=== PATIENT | female | born 1950 | race Caucasian/White ===

== ENCOUNTER → 2016-10-26 | Outpatient (CLI) | payer OTHER ==
--- NOTE | 2016-10-26 12:37 | REP ---
Chest two views HISTORY: Cough Comparison: 01/21/2012 The lungs are clear. The heart is normal in size. The pulmonary vasculature is normal in appearance. Degenerative change is present in the thoracic spine. IMPRESSION: No acute disease. Signed by Chu Mayer MD 10/26/2016 12:28 P
== END ==
LOC: M SMT 11:39
PROVIDERS: ATTEND Internal Medicine Pulmonary Disease
DX: R05 Cough (principal)

== ENCOUNTER → 2017-08-05 | Outpatient (REF) | payer OTHER ==
[2017-08-05 13:23] LABS: ANION GAP 8 MEQ/L (8-16); BLOOD UREA NITROGEN 19 MG/DL (7-18); CARBON DIOXIDE LEVEL 26 MEQ/L (21-32); CHLORIDE LEVEL 107 MEQ/L (98-107); CREATININE FOR GFR 0.81 MG/DL (0.55-1.02); GLOMERULAR FILTRATION RATE > 60.0 (>45); GLUCOSE, FASTING 92 MG/DL (80-110); POTASSIUM SERUM 4.8 MEQ/L (3.5-5.1); SODIUM LEVEL 141 MEQ/L (136-145)
== END ==
LOC: M LAB REF 12:52
PROVIDERS: ATTEND Nurse Practitioner Adult Health
DX: E11.9 Type 2 diabetes mellitus without complications (principal); I10 Essential (primary) hypertension

== ENCOUNTER → 2020-11-25 | Outpatient (CLI) | payer MEDICARE, OTHER ==
--- NOTE | 2020-11-26 03:00 | REP ---
INDICATION: PAIN COMPARISON: None. TECHNIQUE: Internal rotation, external rotation, and Y view. FINDINGS: Moderate to somewhat significant cortical irregularity and spurring at the acromioclavicular joint is appreciated along with evidence for old healed mid clavicle shaft fracture. The ossified glenoid rim has a subtle irregular frayed appearance. The proximal humerus is essentially age-appropriate. The subacromial space is normal. No evidence for acute fracture or dislocation. IMPRESSION: Mild/moderate osteoarthritic degenerative changes primarily involving the acromioclavicular joint and glenoid rim. <Electronically signed by Chad Gabriel > 11/26/20 025
== END ==
LOC: M WUC 14:26
PROVIDERS: ATTEND Nurse Practitioner Adult Health
DX: M19.011 Primary osteoarthritis, right shoulder (principal)

== ENCOUNTER 2021-05-11 20:18 | Emergency (ER) | payer MEDICARE, OTHER ==
[~2021-05-11] VITALS: Ht 157.5 cm; Wt 78.0 kg
[2021-05-11] MEDS ORDERED: HYDROMORPHONE HCL 0.5 MG/ 0.5 ML SYRINGE (J1170 PER 1) IV ONE (22:20)
--- NOTE | 2021-05-11 22:47 | REPVR ---
PROCEDURE INFORMATION: Exam: XR Left Humerus Exam date and time: 05/11/2021 9:58 PM Age: 70 years old Clinical indication: Injury or trauma; Fall; Dislocation; Humerus, proximal end; Left TECHNIQUE: Imaging protocol: XR Left humerus. Views: 2 or more views. COMPARISON: 1. CR SHOULDER COMPLETE 2020-11-25 14:40 2. US EXTREMITY NON VASCUL LIMITED 2016-03-15 16:51 3. CR CHEST 2 VIEWS 2016-10-26 11:44 FINDINGS: Bones/joints: Anterior inferior dislocated humerus. Soft tissues: Normal. IMPRESSION: Anterior inferior dislocated humerus. Electronically signed by: Jerome Kline On 05/11/2021 22:47:31 PM
--- NOTE | 2021-05-11 22:56 | REPVR ---
PROCEDURE INFORMATION: Exam: XR Left Shoulder Exam date and time: 05/11/2021 9:58 PM Age: 70 years old Clinical indication: Injury or trauma; Fall; Dislocation; Humerus, proximal end; Left TECHNIQUE: Imaging protocol: XR Left shoulder. Views: 2 or more views. COMPARISON: 1. CR SHOULDER COMPLETE 2020-11-25 14:40 2. US EXTREMITY NON VASCUL LIMITED 2016-03-15 16:51 3. CR CHEST 2 VIEWS 2016-10-26 11:44 FINDINGS: Bones/joints: Inferior anterior dislocated left humerus. Soft tissues: Soft tissue swelling. IMPRESSION: Inferior anterior dislocated left humerus. Electronically signed by: Jerome Kline On 05/11/2021 22:56:31 PM
[2021-05-11] MEDS ORDERED: propofoL 200 MG/20 ML VIAL IV.PROC PRN (23:00)
[2021-05-11] MEDS ORDERED: NS 1,000 ML IV SCH (23:00)
[2021-05-11] MEDS ORDERED: KETAMINE HCL 200 MG/20 ML VIAL IV ONE (23:00)
[2021-05-11] MEDS ORDERED: ATOR40TA75 PO (23:50)
[2021-05-11] MEDS ORDERED: IRBE150T7 PO (23:50)
[2021-05-11] MEDS ORDERED: AMLO1TAB24 PO (23:50)
[2021-05-12] VITALS: O2SAT 98
[2021-05-12] MEDS ORDERED: propofoL 200 MG/20 ML VIAL IV ONE (00:25)
--- NOTE | 2021-05-12 00:50 | REPVR ---
PROCEDURE INFORMATION: Exam: XR Left Shoulder Exam date and time: 05/11/2021 11:57 PM Age: 70 years old Clinical indication: Pain; Left; Patient HX: Reduction of dislocated shoulder TECHNIQUE: Imaging protocol: XR Left shoulder. Views: 1 view. COMPARISON: CR Shoulder, complete LEFT 05/11/2021 9:37 PM FINDINGS: Bones/joints: There has been a successful reduction of the previously noted left anterior shoulder dislocation since the left shoulder x-rays on 05/11/2021 9:37 PM. There is an acute mildly displaced fracture of the anterior inferior portion of the left glenoid (Bankart fracture). There is a possible Hill-Sachs lesion. Left lung: There is left basilar atelectasis. Soft tissues: Unremarkable. IMPRESSION: 1. Successful reduction of the previously noted left anterior shoulder dislocation since the left shoulder x-rays on 05/11/2021 9:37 PM. 2. Possible left Hill-Sachs lesion and a left Bankart fracture. Electronically signed by: Sebastien Timmons On 05/12/2021 00:49:36 AM
[2021-05-12] MEDS ORDERED: KETOROLAC 30 MG/ML 1ML VIAL IV ONE (01:15)
[2021-05-12] MEDS ORDERED: NORCO 5/325MG TABLET (BULK FOR ED) PO ONE (02:00)
[2021-05-12 02:15] VITALS: BP 142/68
== END 2021-05-12 02:37 | disposition home or self-care (01) ==
LOC: M ED 20:18
DX: S43.005A Unspecified dislocation of left shoulder joint, initial encounter (principal); W01.0XXA Fall on same level from slipping, tripping and stumbling without subsequent striking against object, initial encounter; Y92.018 Other place in single-family (private) house as the place of occurrence of the external cause; Z88.1 Allergy status to other antibiotic agents; Z91.040 Latex allergy status
CPT/HCPCS: 23650; 73020; 73030; 73060; 80047; 93041; 96361; 96374; 99152; 99285; J1170; J1885

== ENCOUNTER → 2021-08-03 | Outpatient (REF) | payer MEDICARE, OTHER ==
[~2021-08-03] MED LIST: AMLO1TAB24 PO; ATOR40TA75 PO; IRBE150T7 PO
== END ==
LOC: M LAB REF 16:25
PROVIDERS: ATTEND Internal Medicine
DX: M10.9 Gout, unspecified (principal)

== ENCOUNTER 2022-08-11 02:40 | Emergency (ER) | payer MEDICARE, OTHER ==
[~2022-08-11] VITALS: Ht 157.5 cm; Wt 75.0 kg
[2022-08-11 04:04] LABS: ALBUMIN 3.6 G/DL (3.2-5.2); ALKALINE PHOSPHATASE 105 U/L (46-116); ALT/SGPT 36 U/L (7.0-40); AST/SGOT 47 U/L (<34); BILIRUBIN,DIRECT 0.1 MG/DL (<0.4); BILIRUBIN,TOTAL 0.4 MG/DL (0.3-1.2); BLOOD UREA NITROGEN 16 MG/DL (9-23); CARBON DIOXIDE LEVEL 27 MMOL/L (20-31); CHLORIDE LEVEL 105 MMOL/L (98-107); CREATININE FOR GFR 0.89 MG/DL (0.55-1.30); GLOMERULAR FILTRATION RATE > 60.0 (>39); GLUCOSE, FASTING 114 MG/DL (74-106); POTASSIUM SERUM 4.3 MMOL/L (3.5-5.1); SODIUM LEVEL 140 MMOL/L (136-145); TOTAL PROTEIN 7.2 G/DL (5.7-8.2)
[2022-08-11] MEDS ORDERED: predniSONE 20 MG TAB PO ONE (07:55)
[2022-08-11] MEDS: IPRATROPIUM 0.5MG/ALBUTEROL 2.5MG INH SOL UD 3ML (DUONEB) NEB SCH ×3 (08:03→08:25)
[2022-08-11 09:07] LABS: BASO # 0.1 10^3/uL (0.0-0.2); BASO % 0.9 % (0.0-1.0); EOS # 0.1 10^3/uL (0.0-0.5); EOS % 0.6 % (0.0-3.0); HEMATOCRIT 38.1 % (36.0-47.0); HEMOGLOBIN 12.5 g/dl (12.0-15.5); LYMPH # 2.8 10^3/uL (1.5-5.0); LYMPH % 28.9 % (24.0-44.0); MEAN CORPUSCULAR HGB CONC 32.8 g/dl (32.0-36.5); MEAN CORPUSCULAR VOLUME 100.5 fl (80.0-96.0); MONO # 0.8 10^3/uL (0.0-0.8); MONO % 8.6 % (2.0-8.0); NEUTROPHILS # 5.7 10^3/uL (1.5-8.5); NEUTROPHILS % 59.4 % (36.0-66.0); PLATELET COUNT, AUTOMATED 246 10^3/uL (150-450); RED BLOOD COUNT 3.79 10^6/uL (4.00-5.40); WHITE BLOOD COUNT 9.7 10^3/uL (4.0-10.0)
[2022-08-11] MEDS ORDERED: VENTAER INH (10:16)
[2022-08-11] MEDS ORDERED: PRED20TA PO (10:16)
[2022-08-11 11:05] VITALS: BP 125/59
== END 2022-08-11 11:10 | disposition home or self-care (01) ==
LOC: M ED 02:40
DX: J20.5 Acute bronchitis due to respiratory syncytial virus (principal); R91.8 Other nonspecific abnormal finding of lung field; E11.9 Type 2 diabetes mellitus without complications; I10 Essential (primary) hypertension; E78.5 Hyperlipidemia, unspecified; G47.33 Obstructive sleep apnea (adult) (pediatric); Z79.899 Other long term (current) drug therapy; Z88.8 Allergy status to other drugs, medicaments and biological substances; Z91.040 Latex allergy status
CPT/HCPCS: 71045; 80048; 80076; 83605; 83880; 85025; 87040; 87077; 87186; 87486; 87581; 87633; 87798; 93005; 99284; J7512

== ENCOUNTER → 2022-09-09 | Outpatient (CLI) | payer MEDICARE ==
[~2022-09-09] MED LIST changes: +PRED20TA PO; +VENTAER INH
== END ==
LOC: M RAD 10:32
PROVIDERS: ATTEND Nurse Practitioner Adult Health
DX: J12.9 Viral pneumonia, unspecified (principal)

== ENCOUNTER → 2024-04-24 | Outpatient (CLI) | payer MEDICARE ==
[~2024-04-24] MED LIST changes: +IRBE150T27 PO; -IRBE150T7 PO
== END ==
LOC: M WUC 15:44
PROVIDERS: ATTEND Nurse Practitioner Family
DX: M25.552 Pain in left hip (principal)

== ENCOUNTER → 2024-12-31 | Outpatient (REF) | payer MEDICARE | LOC: M LAB REF 11:46 | PROVIDERS: ATTEND Physician Assistant Medical | DX: B34.9 Viral infection, unspecified (principal) ==